=== PATIENT | female | born 1970 | race Two or more races ===

== ENCOUNTER → 2024-10-06 | Outpatient (CLI) | payer MEDICAID, SELFPAY ==
--- NOTE | 2024-10-06 16:00 | XR_ITS ---
Examination: CT soft tissue neck, without intravenous contrast. 2-D coronal reconstructions. 2-D sagittal reconstructions. Date and time of exam :October 06, 2024 1559 hours INDICATIONS: Patient states neck discomfort and difficulty swallowing beginning 2 months ago. CTDI: vol (mGy):17 DLP: (mGycm):399 Technique: 1.25 mm axial sections of the neck of the obtained. Coronal and sagittal reconstructions have been obtained. Low dose protocols were performed. One or more of the following dose reduction techniques were used; automated exposure control, adjustment of the mA and/or KV according to patient size, use of iterative reconstruction technique. Findings: Symmetrical nasopharynx oropharynx Subcentimeter carotid triangle and submental lymph nodes with one additional 14 mm left submental lymph node The right submandibular gland is asymmetrically larger than the left submandibular gland with mild inflammatory change The larynx appears normal Thyroid lobes are not enlarged Normal epiglottis Mild cervical spondylosis Lung apices are clear IMPRESSION: Findings suspicious for right submandibular sialadenitis, clinical correlation advised
== END | disposition home or self-care (01) ==
PROVIDERS: Referring Provider Physician Assistant; Visit Provider Physician Assistant
DX: R59.9 Enlarged lymph nodes, unspecified (principal)
CPT/HCPCS: 70490